=== PATIENT | female | born 1960 | race Caucasian/White ===

== ENCOUNTER → 2016-07-19 | Day surgery (SDC) | payer OTHER ==
[2016-07-09 14:58] VITALS: Ht 162.6 cm; Wt 61.4 kg
[~2016-07-19] VITALS: Ht 162.6 cm; Wt 61.4 kg
[~2016-07-19] MED LIST: ACAR50TA3 PO; ASPCH81X PO; BIOT1CAP8 PO; CHOL100010 PO; DOXYCYCLINE PO; ENAL5TAB83 PO; FENTANYL CITRATE INJ 50 MCG/1 ML 2 ML VIAL ONE; FOLI1TAB7 PO; GLYB-236 PO; HYDR25TA4 PO; INSDGI SC; IRON PO; LIDOCAINE HCL 2% 2 ML VIAL (20MG/ML) ONE; MAGN400T6 PO; MECL1TAB40 PO; MELO15TA4 PO; MIDAZOLAM HCL 1 MG/ML 2ML VIAL ONE; MULT-506 PO; MULTCAP PO; MYCO500T4 PO; POTA8CAP6 PO; PROPOFOL IV EMULSION 10 MG/ML 20 ML VIAL IV ONE; SODIUM CHLORIDE 0.9% 500ML 500 ML IV ONE; SULF1TAB92 PO; VITA1CAP4 PO
--- NOTE | 2016-07-19 08:40 | Endo History and Physical ---
History & Physical Date of Service: Jul 19, 2016. Chief Complaint: surveillance for varices Referring Physician: Dr. Constantino Porter History of Present Illness 55 yo with auto-immune hepatitis presenting for variceal screening Past Surgical History Hx Cardiac Surgery: No Hx Internal Defibrillator: No Hx Pacemaker: No Hx Abdominal Surgery: Yes (OPEN MICHAEL, TUBAL LIGATION, APPY) Hx of Implantable Prosthesis: No Hx Post-Op Nausea and Vomiting: Yes Hx Cancer Surgery: No Hx Thoracic Surgery: No Hx Orthopedic: Yes (RT CTR) Hx Urinary Tract Surgery: No Family History None Social History Smoking Status: Never Smoker Hx Substance Use: No Hx Alcohol Use: Yes (OCCASSIONALLY) Allergies Coded Allergies: Heparin (Verified Allergy, Unknown, UNSURE/HALLUCINATIONS?, 07/09/16) Hydromorphone (Verified Allergy, Unknown, UNSURE/HALLUCINATIONS?, 07/09/16) Current Medications Reported Home Medications Medications Dose Route/Sig Max Daily Dose Days Date Category Aspirin Chewable (Aspirin) 81 Mg Chew 81 Mg PO BID 07/09/16 Reported Precose (Acarbose) 50 Mg Tab 50 Mg PO BID 07/09/16 Reported Multivitamin (Multivitamins) Tab 1 Tab PO QAM 07/09/16 Reported E 1000 (Vitamin E) 1,000 Unit Cap 1 Cap PO QAM 07/09/16 Reported Biotin 1 Mg Cap 1 Cap PO BID 07/09/16 Reported Vitamin D (Cholecalciferol) 1,000 Unit Tab 1 Tab PO BID 07/09/16 Reported [Iron] 65 Mg PO BID 07/09/16 Reported Lantus (Insulin Glargine) 100 Unit/Ml Inj 16 Units SC QAM 07/09/16 Reported Glyburide/Metformin Hcl (Glyburide-Metformin) 1 Tab Tab 2 Tab PO QAM 07/09/16 Reported Folvite (Folic Acid) 1 Mg Tab 1 Mg PO QAM 07/09/16 Reported Meclizine HCl 12.5 Mg Tab 1 Tab PO TID PRN 10 07/09/16 Reported Mobic (Meloxicam) 15 Mg Tab 15 Mg PO DAILY 07/09/16 Reported Bactrim 400MG/80MG (Trimethoprim/Sulfamethoxazole) Tab 1 Tab PO 3XWK 07/09/16 Reported [Doxycycline] 20 Mg PO 4XWK 07/09/16 Reported Hctz (Hydrochlorothiazide) 25 Mg Tab 0.5 Tab PO QAM 07/09/16 Reported Vasotec (Enalapril Maleate) 5 Mg Tab 5 Mg PO QAM 07/09/16 Reported Mag-Ox (Magnesium Oxide) 400 Mg Tab 400 Mg PO QPM 07/09/16 Reported Actical (Multiple Vitamins W/ Minerals) 1 Cap Cap 300 Mg PO TID 07/09/16 Reported Klor-Con Ext Rel (Potassium Chloride) 8 Meq Tabcr 8 Meq PO QAM 07/09/16 Reported Cellcept (Mycophenolate Mofetil) 500 Mg Tab 500 Mg PO BID 07/09/16 Reported Vital Signs Weight (Kilograms): 61.36 Height (Feet): 5 Height (Inches): 4 Date Time Temp Pulse Resp B/P Pulse Ox O2 Delivery O2 Flow Rate FiO2 07/19/16 08:20 37.8 80 16 144/80 98 Room Air Physical Exam General Appearance: WD/WN, no apparent distress Respiratory/Chest: Respiratory effort: no dyspnea Auscultation: breath sounds normal, CTA except as noted, no wheezing Cardiovascular: Apical Impulse: not displaced Heart Auscultation: RRR, normal S1, normal S2 Abdomen: Bowel Sounds: normal Inspection & Palpation: soft, non-distended Assessment and Plan 55 yo presenting for egd for variceal screening
--- NOTE | 2016-07-19 08:49 | Discharge Instructions ---
Endoscopy Patient Instructions Date / Procedure(s) Performed Jul 19, 2016. EGD Allergy Information Coded Allergies: Heparin (Verified Allergy, Unknown, UNSURE/HALLUCINATIONS?, 07/09/16) Hydromorphone (Verified Allergy, Unknown, UNSURE/HALLUCINATIONS?, 07/09/16) Discharge Date / Findings Jul 19, 2016. Normal examination-no signs of chronic liver disease changes Medication Instructions Stopped Medication(s): stopped ASA and Iron on last Friday Provider Instructions Activity Restrictions - No exercising or heavy lifting for 24 hours. - Do not drink alcohol the day of the procedure. - Do not drive a car or operate machinery until the day after the procedure. - Do not make any important decisions or sign important papers in 24 hours after the procedure. Following Day: - Return to full activity which may include returning to work/school. Diet Start your diet with liquids and light foods (jello, soup, juice, toast). Then eat your usual diet if not nauseated. Treatment For Common After Affects For mild abdominal pain, bloating, or excessive gas: - Rest - Eat lightly - Lie on right side Follow-Up Information Follow-up with Dr. Constantino Porter as scheduled Anesthesia Information What You Should Know You have had a procedure that required some medicine to reduce anxiety and discomfort. This treatment is called moderate sedation. After receiving the treatment, you may be sleepy, but you will be able to breathe on your own. The effects of the treatment may last for several hours. Follow these instructions along with Activity/Diet recommendations noted above: * Do NOT do anything where dizziness or clumsiness would be dangerous. * Rest quietly at home today, then you can be up and about tomorrow. * Have a responsible person stay with you the rest of today. * You may have had an I.V. today. If so, you may take the dressing off later today. Recommendations Call your doctor if: * Trouble breathing * Continuous vomiting for more than 24 hours * Temperature above 101 degrees * Severe abdominal pain or bloating * Pain not relieved by pain medicine ordered * There is increased drainage or redness from any incision * A large amount of rectal bleeding greater than 2-3 tablespoons. (If you had a polyp/s removed or have hemorrhoids, a small amount of blood - from the rectum is to be expected.) * You have any unanswered questions or concerns. IN THE EVENT OF A SERIOUS EMERGENCY, GO TO THE NEAREST EMERGENCY ROOM Your discharge instructions were prepared by provider Cuauhtemoc Mariano. Patient Instructions Signature Page Olivia Kaye Patient (or Guardian) Signature/Date: I have read and understand the instructions given to me by my caregivers. Caregiver/RN/Doctor Signature/Date: The above-named patient and/or guardian has received patient instructions on this date. + Original Patient Signature Page (only) stays with chart. Please make copy for patient.
--- NOTE | 2016-07-19 08:56 | GI REPORT ---
Procedure Date: 07/19/2016 8:38 AM Procedure: Upper GI endoscopy Indications: Cirrhosis rule out esophageal varices Medicines: General Anesthesia Complications: No immediate complications. Estimated blood loss: None. Estimated Blood Loss: Estimated blood loss: none. Procedure: Pre-Anesthesia Assessment: - Pre-Anesthesia Assessment: - Prior to the procedure, a History and Physical was performed, and patient medications, allergies and sensitivities were reviewed. The patient's tolerance of previous anesthesia was reviewed. Please see [facility] for complete details. - The risks and benefits of the procedure and the sedation options and risks were discussed with the patient. All questions were answered and informed consent was obtained. - Patient identification and proposed procedure were verified prior to the procedure by the physician and the nurse. The procedure was verified in the pre-procedure area in the procedure room. After obtaining informed consent, the endoscope was passed carefully and meticuously under direct vision and only advanced when the lumen was clearly identified, C02 insuflation was utilized throughout the entirity of the procedure. Throughout the procedure, the patient's blood pressure, pulse, and oxygen saturations were monitored continuously. After obtaining informed consent, the endoscope was passed under direct vision. Throughout the procedure, the patient's blood pressure, pulse, and oxygen saturations were monitored continuously. The scope was introduced through the mouth, and advanced to the second part of duodenum. The upper GI endoscopy was accomplished without difficulty. The patient tolerated the procedure well. Findings: The examined esophagus was normal. The entire examined stomach was normal. The examined duodenum was normal. Impression: - Normal esophagus. - Normal stomach. - Normal examined duodenum. - No specimens collected. Recommendation: - Discharge patient to home (with escort). - Return to referring physician as previously scheduled. Cuauhtemoc Mariano MD 07/19/2016 8:55:50 AM This report has been signed electronically. Note Initiated On: 07/19/2016 8:38 AM
--- NOTE | 2016-07-19 09:04 | Anesthesiology Progress Note ---
Anesthesia Post Op Note Date & Time Jul 19, 2016 at 09:05 Vital Signs Pain Intensity: 0 Vital Signs Past 12 Hours Date Time Temp Pulse Resp B/P Pulse Ox O2 Delivery O2 Flow Rate FiO2 07/19/16 08:20 37.8 80 16 144/80 98 Room Air Notes Mental Status: alert / awake / arousable, participated in evaluation Pt Amnestic to Procedure: Yes Nausea / Vomiting: adequately controlled Pain: adequately controlled Airway Patency, RR, SpO2: stable & adequate BP & HR: stable & adequate Hydration State: stable & adequate Anesthetic Complications: no major complications apparent
[2016-07-19 09:24] VITALS: BP 117/58; PULSE 81; O2SAT 97
== END | disposition home or self-care (01) ==
LOC: C.GI 07:48
PROVIDERS: ATTEND Internal Medicine
DX: K75.4 Autoimmune hepatitis (principal); K74.60 Unspecified cirrhosis of liver; E11.9 Type 2 diabetes mellitus without complications; Z79.4 Long term (current) use of insulin; E07.9 Disorder of thyroid, unspecified; I10 Essential (primary) hypertension

== ENCOUNTER → 2016-07-19 | Outpatient (CLI) | payer OTHER ==
[~2016-07-19] MED LIST changes: -FENTANYL CITRATE INJ 50 MCG/1 ML 2 ML VIAL ONE; -LIDOCAINE HCL 2% 2 ML VIAL (20MG/ML) ONE; -MIDAZOLAM HCL 1 MG/ML 2ML VIAL ONE; -PROPOFOL IV EMULSION 10 MG/ML 20 ML VIAL IV ONE; -SODIUM CHLORIDE 0.9% 500ML 500 ML IV ONE
--- NOTE | 2016-07-19 11:05 | DIAGNOSTIC IMAGING REPORT ---
ABDOMINAL ULTRASOUND COMPLETE HISTORY: AUTOIMMUNE Hepatitis, cirrhosis. COMPARISON: None. FINDINGS: Pancreas: The pancreas demonstrates a normal echotexture. Liver: There appears to be a subtle nodular contour to the liver. No hepatic masses. Gallbladder: The gallbladder is surgically absent. CBD: 6 mm. Kidneys: No hydronephrosis. A 4 mm cyst within the right kidney. The right kidney measures 10.2 cm and the left kidney measures 11.8 cm. Spleen: Normal in size. Punctate echogenic foci throughout the spleen suggestive of calcified granulomas Aorta: Normal in caliber. IVC: Patent. IMPRESSION: 1. There appears to be a subtle nodular contour to the liver. This likely represents early cirrhosis. 2. Cholecystectomy. Electronically signed by: Gab Skaggs M.D. 07/19/2016 11:03 AM Dictated Date/Time: 07/19/2016 11:00 AM
--- NOTE | 2016-07-19 11:21 | DIAGNOSTIC IMAGING REPORT ---
MESENTERIC VENOUS ULTRASOUND CLINICAL HISTORY: AUTOIMMUNE HEPATITIS,CIRRHOSIS COMPARISON STUDY: No previous studies for comparison. FINDINGS: The hepatic veins are patent with normal directional flow. The portal veins are patent with normal directional flow. The hepatic artery appears unremarkable. Splenic vein is patent. IMPRESSION: The portal and hepatic veins are patent with normal directional flow Electronically signed by: Eddi Tristan M.D. 07/19/2016 11:19 AM Dictated Date/Time: 07/19/2016 11:18 AM
== END | disposition home or self-care (01) ==
LOC: C.ULTR 07:51
PROVIDERS: ATTEND Nurse Practitioner Family
DX: K75.4 Autoimmune hepatitis (principal); K74.60 Unspecified cirrhosis of liver